=== PATIENT | male | born 1930 | race Caucasian/White ===

== ENCOUNTER 2019-06-07 10:26 | Emergency (ER) | payer MEDICARE, MEDICAID ==
[~2019-06-07] VITALS: Ht 167.6 cm; Wt 80.0 kg
[2019-06-07 11:31] LABS: CHLORIDE 110 mEq/L (98-107)
[2019-06-07 12:32] LABS: BASOPHILS % 0.4 % (0.0-2.0); EOSINOPHILS % 1.4 % (0.0-5.0); HEMATOCRIT. 40.9 % (42.0-52.0); HEMOGLOBIN. 14.3 g/dL (14.0-18.0); LYMPHOCYTES % 15.3 % (20.0-50.0); MEAN CORPUSCULAR VOLUME 94.5 fL (80.0-94.0); MEAN PLATELET VOLUME 7.7 fl (7.4-10.4); MONOCYTES % 11.2 % (2.0-8.0); NEUTROPHILS % 71.7 % (40.0-76.0); PLATELET 173 x1000/uL (130-400); RED BLOOD CELL COUNT 4.33 mill/uL (4.7-6.1)
[2019-06-07 12:34] LABS: MEAN CORPUSCULAR HEMOGLOBIN 33.1 pg (28.0-32.0)
[2019-06-07 13:10] VITALS: BP 177/78
== END 2019-06-07 13:14 | disposition home or self-care (01) ==
LOC: ER 10:26
DX: R06.00 Dyspnea, unspecified (principal)
CPT/HCPCS: 36415; 71045; 80053; 83880; 84484; 85025; 93005; 99285